=== PATIENT | female | born 1975 | race Caucasian/White ===

== ENCOUNTER 2017-12-03 10:10 | Outpatient (REF) | payer MEDICAID, SELFPAY ==
[2017-12-07 00:12] LABS: 6-monoacetylmorphine Not Detected ng/mL (Cutoff: 25); Amphetamines Negative ng/mL (Cutoff: 500); Barbiturates Negative ng/mL (Cutoff: 200); Benzodiazepines Negative ng/mL (Cutoff: 100); Buprenorphine Not Detected ng/mL (Cutoff: 5); Cocaine Negative ng/mL (Cutoff: 150); Codeine Not Detected ng/mL (Cutoff: 25); Comment Normal; Creatinine, U 53.8 mg/dL; Dihydrocodeine Not Detected ng/mL (Cutoff: 25); EDDP Present ng/mL (Cutoff: 25); Fentanyl Not Detected ng/mL (Cutoff: 2); Hydrocodone Not Detected ng/mL (Cutoff: 25); Hydromorphone Not Detected ng/mL (Cutoff: 25); Hydromorphone-3-beta-glucuroni Not Detected ng/mL (Cutoff: 100); Meperidine Not Detected ng/mL (Cutoff: 25); Methadone Present ng/mL (Cutoff: 25); Morphine Not Detected ng/mL (Cutoff: 25); N-desmethyltapentadol Not Detected ng/mL (Cutoff: 50); Naloxone Not Detected ng/mL (Cutoff: 25); Norbuprenorphine Not Detected ng/mL (Cutoff: 5); Norfentanyl Not Detected ng/mL (Cutoff: 2); Norhydrocodone Not Detected ng/mL (Cutoff: 25); Normeperidine Not Detected ng/mL (Cutoff: 25); Noroxycodone Present ng/mL (Cutoff: 25); Noroxymorphone Present ng/mL (Cutoff: 25); O-desmethyltramadol Not Detected ng/mL (Cutoff: 25); Phencyclidine Negative ng/mL (Cutoff: 25); Propoxyphene Not Detected ng/mL (Cutoff: 25); Specific Gravity 1.008; Tapentadol Not Detected ng/mL (Cutoff: 25); Tetrahydrocannabinol Negative ng/mL (Cutoff: 50); Tramadol Not Detected ng/mL (Cutoff: 25); pH 7.1
== END 2017-12-03 10:30 ==
LOC: LBN 10:10
PROVIDERS: PCP Family Medicine; Visit Provider Nurse Practitioner Family
DX: M54.5 Low back pain (principal); Z79.891 Long term (current) use of opiate analgesic
CPT/HCPCS: 80307; 80364

== ENCOUNTER 2018-02-25 10:12 | Outpatient (REF) | payer MEDICAID, SELFPAY ==
[2018-03-01 15:16] LABS: 6-monoacetylmorphine Not Detected ng/mL (Cutoff: 25); Amphetamines Negative ng/mL (Cutoff: 500); Barbiturates Negative ng/mL (Cutoff: 200); Benzodiazepines Negative ng/mL (Cutoff: 100); Buprenorphine Not Detected ng/mL (Cutoff: 5); Cocaine Negative ng/mL (Cutoff: 150); Codeine Not Detected ng/mL (Cutoff: 25); Comment Normal; Creatinine, U 61.8 mg/dL; Dihydrocodeine Not Detected ng/mL (Cutoff: 25); EDDP Present ng/mL (Cutoff: 25); Fentanyl Not Detected ng/mL (Cutoff: 2); Hydrocodone Not Detected ng/mL (Cutoff: 25); Hydromorphone Not Detected ng/mL (Cutoff: 25); Hydromorphone-3-beta-glucuroni Not Detected ng/mL (Cutoff: 100); Meperidine Not Detected ng/mL (Cutoff: 25); Methadone Present ng/mL (Cutoff: 25); Morphine Not Detected ng/mL (Cutoff: 25); N-desmethyltapentadol Not Detected ng/mL (Cutoff: 50); Naloxone Not Detected ng/mL (Cutoff: 25); Norbuprenorphine Not Detected ng/mL (Cutoff: 5); Norfentanyl Not Detected ng/mL (Cutoff: 2); Norhydrocodone Not Detected ng/mL (Cutoff: 25); Normeperidine Not Detected ng/mL (Cutoff: 25); Noroxycodone Present ng/mL (Cutoff: 25); Noroxymorphone Present ng/mL (Cutoff: 25); O-desmethyltramadol Not Detected ng/mL (Cutoff: 25); Phencyclidine Negative ng/mL (Cutoff: 25); Propoxyphene Not Detected ng/mL (Cutoff: 25); Specific Gravity 1.012; Tapentadol Not Detected ng/mL (Cutoff: 25); Tetrahydrocannabinol Negative ng/mL (Cutoff: 50); Tramadol Not Detected ng/mL (Cutoff: 25); pH 7.1
== END 2018-02-25 10:32 ==
LOC: LBN 10:12
PROVIDERS: PCP Family Medicine; Visit Provider Nurse Practitioner Family
DX: Z79.891 Long term (current) use of opiate analgesic (principal)
CPT/HCPCS: 80307; 80364

== ENCOUNTER 2018-05-16 07:00 | Outpatient (REF) | payer MEDICAID, SELFPAY ==
[2018-05-17 10:09] LABS: Vancomycin, Trough 11.7 ug/mL (10.0-20.0)
== END 2018-05-16 07:20 ==
LOC: LBN 07:00
PROVIDERS: PCP Family Medicine; Visit Provider Neurological Surgery
DX: Z79.2 Long term (current) use of antibiotics (principal); Z51.81 Encounter for therapeutic drug level monitoring
CPT/HCPCS: 80202

== ENCOUNTER 2018-06-17 10:52 | Outpatient (REF) | payer MEDICAID, SELFPAY ==
[2018-06-21 12:52] LABS: 6-monoacetylmorphine Not Detected ng/mL (Cutoff: 25); Amphetamines Negative ng/mL (Cutoff: 500); Barbiturates Negative ng/mL (Cutoff: 200); Benzodiazepines Negative ng/mL (Cutoff: 100); Buprenorphine Not Detected ng/mL (Cutoff: 5); Cocaine Negative ng/mL (Cutoff: 150); Codeine Not Detected ng/mL (Cutoff: 25); Comment Normal; Dihydrocodeine Not Detected ng/mL (Cutoff: 25); EDDP Present ng/mL (Cutoff: 25); Fentanyl Not Detected ng/mL (Cutoff: 2); Hydrocodone Not Detected ng/mL (Cutoff: 25); Hydromorphone Not Detected ng/mL (Cutoff: 25); Hydromorphone-3-beta-glucuroni Not Detected ng/mL (Cutoff: 100); Meperidine Not Detected ng/mL (Cutoff: 25); Methadone Present ng/mL (Cutoff: 25); Morphine Not Detected ng/mL (Cutoff: 25); N-desmethyltapentadol Not Detected ng/mL (Cutoff: 50); Naloxone Not Detected ng/mL (Cutoff: 25); Norbuprenorphine Not Detected ng/mL (Cutoff: 5); Norfentanyl Not Detected ng/mL (Cutoff: 2); Norhydrocodone Not Detected ng/mL (Cutoff: 25); Normeperidine Not Detected ng/mL (Cutoff: 25); Noroxycodone Present ng/mL (Cutoff: 25); Noroxymorphone Present ng/mL (Cutoff: 25); O-desmethyltramadol Not Detected ng/mL (Cutoff: 25); Phencyclidine Negative ng/mL (Cutoff: 25); Propoxyphene Not Detected ng/mL (Cutoff: 25); Specific Gravity 1.009; Tapentadol Not Detected ng/mL (Cutoff: 25); Tetrahydrocannabinol Negative ng/mL (Cutoff: 50); Tramadol Not Detected ng/mL (Cutoff: 25); pH 6.9
== END 2018-06-17 11:12 ==
LOC: LBN 10:52
PROVIDERS: PCP Family Medicine; Visit Provider Nurse Practitioner Family
DX: Z79.891 Long term (current) use of opiate analgesic (principal)
CPT/HCPCS: 80307; 80364

== ENCOUNTER 2018-09-08 09:58 | Outpatient (REF) | payer MEDICAID, SELFPAY ==
[2018-09-11 22:33] LABS: 6-monoacetylmorphine Not Detected ng/mL (Cutoff: 25); Amphetamines Negative ng/mL (Cutoff: 500); Barbiturates Negative ng/mL (Cutoff: 200); Benzodiazepines Negative ng/mL (Cutoff: 100); Buprenorphine Not Detected ng/mL (Cutoff: 5); Cocaine Negative ng/mL (Cutoff: 150); Codeine Not Detected ng/mL (Cutoff: 25); Comment Normal; Creatinine, U 131.2 mg/dL; Dihydrocodeine Not Detected ng/mL (Cutoff: 25); EDDP Present ng/mL (Cutoff: 25); Fentanyl Not Detected ng/mL (Cutoff: 2); Hydrocodone Not Detected ng/mL (Cutoff: 25); Hydromorphone Not Detected ng/mL (Cutoff: 25); Hydromorphone-3-beta-glucuroni Not Detected ng/mL (Cutoff: 100); Meperidine Not Detected ng/mL (Cutoff: 25); Methadone Present ng/mL (Cutoff: 25); Morphine Not Detected ng/mL (Cutoff: 25); N-desmethyltapentadol Not Detected ng/mL (Cutoff: 50); Naloxone Not Detected ng/mL (Cutoff: 25); Norbuprenorphine Not Detected ng/mL (Cutoff: 5); Norhydrocodone Not Detected ng/mL (Cutoff: 25); Normeperidine Not Detected ng/mL (Cutoff: 25); Noroxycodone Not Detected ng/mL (Cutoff: 25); Noroxymorphone Not Detected ng/mL (Cutoff: 25); O-desmethyltramadol Not Detected ng/mL (Cutoff: 25); Phencyclidine Negative ng/mL (Cutoff: 25); Propoxyphene Not Detected ng/mL (Cutoff: 25); Specific Gravity 1.015; Tapentadol Not Detected ng/mL (Cutoff: 25); Tetrahydrocannabinol Negative ng/mL (Cutoff: 50); Tramadol Not Detected ng/mL (Cutoff: 25)
== END 2018-09-08 10:18 ==
LOC: LBN 09:58
PROVIDERS: PCP Family Medicine; Visit Provider Nurse Practitioner Family
DX: Z79.891 Long term (current) use of opiate analgesic (principal)
CPT/HCPCS: 80307; 80364

== ENCOUNTER 2018-11-22 13:06 | Outpatient (REF) | payer MEDICAID, SELFPAY ==
[2018-11-22 13:56] LABS: Abs Immature Grans 0.03 k/cumm (0.0-0.09); Absolute Basophil Count 0.02 k/cumm (0.0-0.2); Absolute Eosinophil Count 0.07 k/cumm (0.0-0.7); Absolute Lymphocyte Count 1.45 k/cumm (1.2-3.4); Absolute Monocyte Count 0.46 k/cumm (0.11-0.7); Absolute Neutrophil Count 6.86 k/cumm (1.2-6.7); Basophils % 0.2; Eosinophils % 0.8; HCT 34.4 % (36.0-46.0); HGB 11.6 g/dL (12.0-15.5); Immature Grans % 0.3; Lymphocytes % 16.3; Mean Corp. HGB Concentration 33.7 g/dL (32.0-36.0); Mean Platelet Volume 9.7 fL (8.0-11.0); Monocytes % 5.2; Neutrophils % 77.2; Platelet Count 350 x1000/uL (130-400); RBC 3.74 m/cumm (4.00-5.20); RBC Distribution Width 14.2 % (11.7-14.6); White Blood Cell Count 8.89 k/cumm (4.4-10.8)
[2018-11-22 15:10] LABS: ALT 15 U/L (14-59); AST 13 U/L (15-37); BUN 4 mg/dL (7-18); CREATININE 0.65 mg/dL (0.55-1.02)
[2018-11-26 12:26] LABS: 6-monoacetylmorphine Not Detected ng/mL (Cutoff: 25); Amphetamines Negative ng/mL (Cutoff: 500); Barbiturates Negative ng/mL (Cutoff: 200); Benzodiazepines Negative ng/mL (Cutoff: 100); Buprenorphine Not Detected ng/mL (Cutoff: 5); Cocaine Negative ng/mL (Cutoff: 150); Codeine Not Detected ng/mL (Cutoff: 25); Comment Normal; Creatinine, U 142.2 mg/dL; Dihydrocodeine Not Detected ng/mL (Cutoff: 25); EDDP Present ng/mL (Cutoff: 25); Fentanyl Not Detected ng/mL (Cutoff: 2); Hydrocodone Not Detected ng/mL (Cutoff: 25); Hydromorphone Not Detected ng/mL (Cutoff: 25); Hydromorphone-3-beta-glucuroni Not Detected ng/mL (Cutoff: 100); Meperidine Not Detected ng/mL (Cutoff: 25); Methadone Present ng/mL (Cutoff: 25); Morphine Present ng/mL (Cutoff: 25); N-desmethyltapentadol Not Detected ng/mL (Cutoff: 50); Naloxone Not Detected ng/mL (Cutoff: 25); Norfentanyl Not Detected ng/mL (Cutoff: 2); Norhydrocodone Not Detected ng/mL (Cutoff: 25); Normeperidine Not Detected ng/mL (Cutoff: 25); Noroxycodone Not Detected ng/mL (Cutoff: 25); Noroxymorphone Not Detected ng/mL (Cutoff: 25); O-desmethyltramadol Not Detected ng/mL (Cutoff: 25); Phencyclidine Negative ng/mL (Cutoff: 25); Propoxyphene Not Detected ng/mL (Cutoff: 25); Specific Gravity 1.015; Tapentadol Not Detected ng/mL (Cutoff: 25); Tetrahydrocannabinol Presumptive Positive ng/mL (Cutoff: 50); Tramadol Not Detected ng/mL (Cutoff: 25); pH 6.3
[2018-11-26 16:38] LABS: Carboxy-THC Interpretation Negative.; Delta-9 CarboxyThc by LC-MS/MS Negative ng/mL (Cutoff:<3)
== END 2018-11-22 13:26 ==
LOC: LBN 13:06
PROVIDERS: Nurse Practitioner Family; PCP Family Medicine; Visit Provider Neurological Surgery
DX: G03.9 Meningitis, unspecified (principal); Z79.2 Long term (current) use of antibiotics
CPT/HCPCS: 80307; 80349; 80364; 84520; 82565; 84450; 84460; 85025

== ENCOUNTER 2018-11-29 14:09 | Outpatient (REF) | payer MEDICAID, SELFPAY ==
[2018-11-29 14:34] LABS: Abs Immature Grans 0.01 k/cumm (0.0-0.09); Absolute Basophil Count 0.02 k/cumm (0.0-0.2); Absolute Eosinophil Count 0.14 k/cumm (0.0-0.7); Absolute Lymphocyte Count 1.65 k/cumm (1.2-3.4); Absolute Monocyte Count 0.56 k/cumm (0.11-0.7); Absolute Neutrophil Count 5.26 k/cumm (1.2-6.7); Basophils % 0.3; Eosinophils % 1.8; HCT 33.5 % (36.0-46.0); HGB 11.4 g/dL (12.0-15.5); Immature Grans % 0.1; Lymphocytes % 21.6; Mean Corpuscular Volume 94.1 fL (80-95); Mean Platelet Volume 9.4 fL (8.0-11.0); Monocytes % 7.3; Neutrophils % 68.9; Platelet Count 325 x1000/uL (130-400); RBC 3.56 m/cumm (4.00-5.20); RBC Distribution Width 16.1 % (11.7-14.6); White Blood Cell Count 7.64 k/cumm (4.4-10.8)
[2018-11-29 14:40] LABS: ALT 11 U/L (14-59); AST 10 U/L (15-37); BUN 6 mg/dL (7-18); CREATININE 0.59 mg/dL (0.55-1.02)
== END 2018-11-29 14:29 ==
LOC: LBN 14:09
PROVIDERS: PCP Family Medicine; Visit Provider Neurological Surgery
DX: G00.8 Other bacterial meningitis (principal); Z79.2 Long term (current) use of antibiotics
CPT/HCPCS: 84520; 82565; 84450; 84460; 85025

== ENCOUNTER 2018-12-08 12:41 | Outpatient (REF) | payer MEDICAID, SELFPAY ==
[2018-12-08 14:18] LABS: Abs Immature Grans 0.02 k/cumm (0.0-0.09); Absolute Basophil Count 0.04 k/cumm (0.0-0.2); Absolute Eosinophil Count 0.11 k/cumm (0.0-0.7); Absolute Lymphocyte Count 2.07 k/cumm (1.2-3.4); Absolute Monocyte Count 0.67 k/cumm (0.11-0.7); Absolute Neutrophil Count 4.85 k/cumm (1.2-6.7); Basophils % 0.5; Eosinophils % 1.4; HCT 35.7 % (36.0-46.0); HGB 12.1 g/dL (12.0-15.5); Immature Grans % 0.3; Lymphocytes % 26.7; Mean Corp. HGB Concentration 33.9 g/dL (32.0-36.0); Mean Corpuscular Hemoglobin 32.1 pg (27.0-33.0); Mean Corpuscular Volume 94.7 fL (80-95); Mean Platelet Volume 9.8 fL (8.0-11.0); Monocytes % 8.6; Neutrophils % 62.5; Platelet Count 316 x1000/uL (130-400); RBC 3.77 m/cumm (4.00-5.20); RBC Distribution Width 16.2 % (11.7-14.6); White Blood Cell Count 7.76 k/cumm (4.4-10.8)
[2018-12-08 23:17] LABS: ALT 12 U/L (14-59); AST 14 U/L (15-37); Alkaline Phosphatase 99 U/L (46-116); BUN 7 mg/dL (7-18); Bilirubin, Direct 0.11 mg/dL (0.00-0.20); Bilirubin, Total 0.9 mg/dL (0.2-1.0); CREATININE 0.64 mg/dL (0.55-1.02)
== END 2018-12-08 13:01 ==
LOC: LBN 12:41
PROVIDERS: PCP Family Medicine; Visit Provider Neurological Surgery
DX: G00.8 Other bacterial meningitis (principal)
CPT/HCPCS: 80076; 84520; 82565; 85025

== ENCOUNTER 2018-12-14 16:26 | Outpatient (REF) | payer MEDICAID, SELFPAY ==
[2018-12-14 17:29] LABS: Abs Immature Grans 0.01 k/cumm (0.0-0.09); Absolute Basophil Count 0.03 k/cumm (0.0-0.2); Absolute Eosinophil Count 0.07 k/cumm (0.0-0.7); Absolute Lymphocyte Count 1.53 k/cumm (1.2-3.4); Absolute Monocyte Count 0.52 k/cumm (0.11-0.7); Absolute Neutrophil Count 4.95 k/cumm (1.2-6.7); Basophils % 0.4; HCT 37.8 % (36.0-46.0); HGB 12.5 g/dL (12.0-15.5); Immature Grans % 0.1; Lymphocytes % 21.5; Mean Corp. HGB Concentration 33.1 g/dL (32.0-36.0); Mean Corpuscular Hemoglobin 31.9 pg (27.0-33.0); Mean Corpuscular Volume 96.4 fL (80-95); Monocytes % 7.3; Neutrophils % 69.7; Platelet Count 299 x1000/uL (130-400); RBC 3.92 m/cumm (4.00-5.20); RBC Distribution Width 16.2 % (11.7-14.6); White Blood Cell Count 7.11 k/cumm (4.4-10.8)
== END 2018-12-14 16:46 ==
LOC: LBN 16:26
PROVIDERS: PCP Family Medicine; Visit Provider Neurological Surgery
DX: G00.8 Other bacterial meningitis (principal); T85.730D Infection and inflammatory reaction due to ventricular intracranial (communicating) shunt, subsequent encounter
CPT/HCPCS: 85025

== ENCOUNTER 2018-12-20 19:19 | Outpatient (REF) | payer MEDICAID, SELFPAY ==
[2018-12-20 15:40] LABS: Abs Immature Grans 0.02 k/cumm (0.0-0.09); Absolute Basophil Count 0.04 k/cumm (0.0-0.2); Absolute Eosinophil Count 0.07 k/cumm (0.0-0.7); Absolute Lymphocyte Count 2.65 k/cumm (1.2-3.4); Absolute Monocyte Count 0.54 k/cumm (0.11-0.7); Absolute Neutrophil Count 3.83 k/cumm (1.2-6.7); Basophils % 0.6; HCT 39.5 % (36.0-46.0); HGB 13.5 g/dL (12.0-15.5); Immature Grans % 0.3; Lymphocytes % 37.1; Mean Corp. HGB Concentration 34.2 g/dL (32.0-36.0); Mean Corpuscular Hemoglobin 32.3 pg (27.0-33.0); Mean Corpuscular Volume 94.5 fL (80-95); Mean Platelet Volume 9.7 fL (8.0-11.0); Monocytes % 7.6; Neutrophils % 53.4; Platelet Count 351 x1000/uL (130-400); RBC 4.18 m/cumm (4.00-5.20); RBC Distribution Width 15.4 % (11.7-14.6); White Blood Cell Count 7.15 k/cumm (4.4-10.8)
[2018-12-20 16:02] LABS: ALT 13 U/L (14-59); AST 17 U/L (15-37); BUN 9 mg/dL (7-18); CREATININE 0.73 mg/dL (0.55-1.02)
== END 2018-12-20 19:39 ==
LOC: LBN 19:19
PROVIDERS: PCP Family Medicine; Visit Provider Neurological Surgery
DX: G00.8 Other bacterial meningitis (principal); Z79.2 Long term (current) use of antibiotics
CPT/HCPCS: 84520; 82565; 84450; 84460; 85025

== ENCOUNTER 2019-02-07 15:27 | Outpatient (REF) | payer MEDICAID, SELFPAY ==
[2019-02-07 16:18] LABS: Abs Immature Grans 0.02 k/cumm (0.0-0.09); Absolute Basophil Count 0.03 k/cumm (0.0-0.2); Absolute Eosinophil Count 0.13 k/cumm (0.0-0.7); Absolute Lymphocyte Count 2.12 k/cumm (1.2-3.4); Absolute Monocyte Count 0.55 k/cumm (0.11-0.7); Basophils % 0.3; Eosinophils % 1.2; HCT 35.2 % (36.0-46.0); HGB 11.7 g/dL (12.0-15.5); Immature Grans % 0.2; Lymphocytes % 19.4; Mean Corp. HGB Concentration 33.2 g/dL (32.0-36.0); Mean Corpuscular Hemoglobin 31.8 pg (27.0-33.0); Mean Corpuscular Volume 95.7 fL (80-95); Neutrophils % 73.9; Platelet Count 364 x1000/uL (130-400); RBC 3.68 m/cumm (4.00-5.20); RBC Distribution Width 12.7 % (11.7-14.6); White Blood Cell Count 10.95 k/cumm (4.4-10.8)
[2019-02-07 16:19] LABS: Absolute Neutrophil Count 8.09 k/cumm (1.2-6.7)
[2019-02-07 16:33] LABS: ALT 16 U/L (14-59); AST 13 U/L (15-37); Albumin 3.3 g/dL (3.4-5.0); Alkaline Phosphatase 82 U/L (46-116); BUN 9 mg/dL (7-18); Bilirubin, Direct 0.09 mg/dL (0.00-0.20); Bilirubin, Total 0.5 mg/dL (0.2-1.0); CREATININE 0.72 mg/dL (0.55-1.02); Total Protein 6.9 g/dL (6.4-8.2)
== END 2019-02-07 15:47 ==
LOC: LBN 15:27
PROVIDERS: PCP Family Medicine; Visit Provider Family Medicine
DX: T85.730D Infection and inflammatory reaction due to ventricular intracranial (communicating) shunt, subsequent encounter (principal); Q07.03 Arnold-Chiari syndrome with spina bifida and hydrocephalus; G03.9 Meningitis, unspecified
CPT/HCPCS: 80076; 84520; 82565; 85025

== ENCOUNTER 2019-02-14 13:16 | Outpatient (REF) | payer MEDICAID, SELFPAY ==
[2019-02-14 14:48] LABS: ALT 11 U/L (14-59); AST 9 U/L (15-37); BUN 13 mg/dL (7-18); CREATININE 0.68 mg/dL (0.55-1.02)
[2019-02-14 14:57] LABS: Abs Immature Grans 0.01 k/cumm (0.0-0.09); Absolute Basophil Count 0.02 k/cumm (0.0-0.2); Absolute Eosinophil Count 0.23 k/cumm (0.0-0.7); Absolute Lymphocyte Count 2.05 k/cumm (1.2-3.4); Absolute Monocyte Count 0.76 k/cumm (0.11-0.7); Absolute Neutrophil Count 5.83 k/cumm (1.2-6.7); Basophils % 0.2; Eosinophils % 2.6; HCT 37.2 % (36.0-46.0); HGB 12.4 g/dL (12.0-15.5); Immature Grans % 0.1; Mean Corp. HGB Concentration 33.3 g/dL (32.0-36.0); Mean Corpuscular Hemoglobin 31.8 pg (27.0-33.0); Mean Corpuscular Volume 95.4 fL (80-95); Mean Platelet Volume 9.6 fL (8.0-11.0); Monocytes % 8.5; Neutrophils % 65.6; Platelet Count 341 x1000/uL (130-400); RBC Distribution Width 13.1 % (11.7-14.6)
== END 2019-02-14 13:36 ==
LOC: LBN 13:16
PROVIDERS: PCP Family Medicine; Visit Provider Internal Medicine Infectious Disease
DX: G03.9 Meningitis, unspecified (principal); Z98.2 Presence of cerebrospinal fluid drainage device
CPT/HCPCS: 84520; 82565; 84450; 84460; 85025

== ENCOUNTER 2019-02-21 19:23 | Outpatient (REF) | payer MEDICAID, SELFPAY ==
[2019-02-21 19:31] LABS: ALT 15 U/L (14-59); AST 12 U/L (15-37); BUN 17 mg/dL (7-18); CREATININE 0.93 mg/dL (0.55-1.02)
[2019-02-21 19:35] LABS: Abs Immature Grans 0.02 k/cumm (0.0-0.09); Absolute Basophil Count 0.05 k/cumm (0.0-0.2); Absolute Eosinophil Count 0.19 k/cumm (0.0-0.7); Absolute Lymphocyte Count 2.26 k/cumm (1.2-3.4); Absolute Monocyte Count 0.66 k/cumm (0.11-0.7); Absolute Neutrophil Count 4.94 k/cumm (1.2-6.7); Basophils % 0.6; Eosinophils % 2.3; HCT 38.2 % (36.0-46.0); HGB 12.9 g/dL (12.0-15.5); Immature Grans % 0.2; Lymphocytes % 27.8; Mean Corp. HGB Concentration 33.8 g/dL (32.0-36.0); Mean Corpuscular Hemoglobin 32.1 pg (27.0-33.0); Mean Platelet Volume 9.8 fL (8.0-11.0); Monocytes % 8.1; Platelet Count 296 x1000/uL (130-400); RBC 4.02 m/cumm (4.00-5.20); RBC Distribution Width 13.3 % (11.7-14.6); White Blood Cell Count 8.12 k/cumm (4.4-10.8)
== END 2019-02-21 19:43 ==
LOC: LBN 19:23
PROVIDERS: PCP Family Medicine; Visit Provider Internal Medicine Infectious Disease
DX: G03.9 Meningitis, unspecified (principal); A41.01 Sepsis due to Methicillin susceptible Staphylococcus aureus
CPT/HCPCS: 84520; 82565; 84450; 84460; 85025

== ENCOUNTER 2019-03-03 16:32 | Outpatient (REF) | payer MEDICAID, SELFPAY ==
[2019-03-03 17:03] LABS: ALT 14 U/L (14-59); AST 12 U/L (15-37); BUN 13 mg/dL (7-18); CREATININE 0.66 mg/dL (0.55-1.02)
[2019-03-03 17:22] LABS: Abs Immature Grans 0.02 k/cumm (0.0-0.09); Absolute Basophil Count 0.04 k/cumm (0.0-0.2); Absolute Lymphocyte Count 2.37 k/cumm (1.2-3.4); Absolute Monocyte Count 0.71 k/cumm (0.11-0.7); Absolute Neutrophil Count 6.03 k/cumm (1.2-6.7); Basophils % 0.4; Eosinophils % 1.1; HCT 37.8 % (36.0-46.0); Immature Grans % 0.2; Lymphocytes % 25.6; Mean Corp. HGB Concentration 34.4 g/dL (32.0-36.0); Mean Corpuscular Hemoglobin 32.6 pg (27.0-33.0); Mean Corpuscular Volume 94.7 fL (80-95); Mean Platelet Volume 9.6 fL (8.0-11.0); Monocytes % 7.7; Platelet Count 297 x1000/uL (130-400); RBC 3.99 m/cumm (4.00-5.20); RBC Distribution Width 13.5 % (11.7-14.6); White Blood Cell Count 9.27 k/cumm (4.4-10.8)
== END 2019-03-03 16:52 ==
LOC: LBN 16:32
PROVIDERS: PCP Family Medicine; Visit Provider Internal Medicine Infectious Disease
DX: A41.01 Sepsis due to Methicillin susceptible Staphylococcus aureus (principal)
CPT/HCPCS: 84520; 82565; 84450; 84460; 85025

== ENCOUNTER 2019-03-07 15:17 | Outpatient (REF) | payer MEDICAID, SELFPAY ==
[2019-03-07 17:32] LABS: Abs Immature Grans 0.02 k/cumm (0.0-0.09); Absolute Basophil Count 0.03 k/cumm (0.0-0.2); Absolute Eosinophil Count 0.13 k/cumm (0.0-0.7); Absolute Lymphocyte Count 2.33 k/cumm (1.2-3.4); Absolute Monocyte Count 0.62 k/cumm (0.11-0.7); Absolute Neutrophil Count 4.38 k/cumm (1.2-6.7); Basophils % 0.4; Eosinophils % 1.7; HCT 38.3 % (36.0-46.0); HGB 13.1 g/dL (12.0-15.5); Immature Grans % 0.3; Mean Corp. HGB Concentration 34.2 g/dL (32.0-36.0); Mean Corpuscular Hemoglobin 32.3 pg (27.0-33.0); Mean Corpuscular Volume 94.6 fL (80-95); Monocytes % 8.3; Neutrophils % 58.3; Platelet Count 331 x1000/uL (130-400); RBC 4.05 m/cumm (4.00-5.20); RBC Distribution Width 13.7 % (11.7-14.6); White Blood Cell Count 7.51 k/cumm (4.4-10.8)
[2019-03-07 17:43] LABS: ALT 12 U/L (14-59); AST 12 U/L (15-37); BUN 10 mg/dL (7-18); CREATININE 0.54 mg/dL (0.55-1.02)
== END 2019-03-07 15:37 ==
LOC: LBN 15:17
PROVIDERS: PCP Family Medicine; Visit Provider Internal Medicine Infectious Disease
DX: G03.9 Meningitis, unspecified (principal); A41.01 Sepsis due to Methicillin susceptible Staphylococcus aureus
CPT/HCPCS: 84520; 82565; 84450; 84460; 85025

== ENCOUNTER → 2023-07-10 04:16 | Outpatient (CLI) | payer MEDICAID, SELFPAY ==
--- NOTE | 2023-07-10 07:30 | DI.CT_ITS ---
Exam(s) CT CHEST PE CTA EXAM: CT CHEST PE CTA CLINICAL HISTORY: hypoxia,h/o pe, dyspnea,r06.00,z86.711. TECHNIQUE: Imaging Protocol: CT angiography of the chest was performed using pulmonary embolus kp col. Multi planar reconstructions were performed. CONTRAST MATERIAL: Intravenous: Omnipaque 350 Contrast volume: 100 cc COMPARISON: No exams were available for comparison FINDINGS: CHEST: PULMONARY ARTERIES: There are no intraluminal filling defects to suggest acute pulmonary emboli. LUNGS: There is a small area of ground-glass infiltrate in the anterior segment of the right upper lo be.. There is a pleural based nodule in the lateral basal segment of the left lower lobe which measu res 5 mm. There is also a 3 millimeter pleural base nodule in the lateral basal segment of the left lower lobe. No other nodules identified. No pleural effusions. No significant focal findings in th e trachea and mainstem bronchi. There is no bronchiectasis. MEDIASTINUM: No significant hilar nor mediastinal adenopathy. Visualized thyroid unremarkable. No a xillary adenopathy. No supraclavicular adenopathy seen. CARDIAC: Heart size is upper normal. There is no pericardial effusion.Caliber of the thoracic aorta is within normal limits. No evidence of aortic dissection. There is no significant shift of the inte rventricular septum. PARTIALLY VISUALIZED UPPERMOST ABDOMEN: There is ventriculoperitoneal shunt noted. No adrenal masses . No splenomegaly. OSSEOUS: Fusion plate in the lower cervical spine noted at C6-7 level.No fractures. No significant o sseous lesions. OTHER: Right-sided Port-A-Cath. Distal tip is in the upper right atrium.. IMPRESSION: 1. No evidence of acute pulmonary emboli. No evidence of pulmonary infarction.No pleural effusions. 2. Small area of ground-glass infiltrate in the right upper lobe anterior segment. 3. Three small pleural base nodules noted in the left lower lobe, the largest measuring 5 mm. Other findings as above. RADIATION DOSE DELIVERED: 1,073.41mGy.cm Total DLP DATA REPOSITORY: All CT scans at this facility are submitted to the National Radiology Data Registry (NRDR) Dose Index Registry (DIR) with the [employer] (A[employer]). RADIATION OPTIMIZATION: All CT scans at this facility use at least one of these dose optimization te chniques: automated exposure control; mA and/or kV adjustment per patient size (includes targeted exa ms where dose is matched to clinical indication); or iterative reconstruction.
[2023-07-10] MEDS: Omnipaque 350 MG/ML 100 ML BTL 85 ML IJ (11:52)
[2023-07-10] MEDS: Normal Saline - Diluent 50 ML VIAL IJ (12:01)
== END ==
PROVIDERS: PCP Family Medicine; Visit Provider Physician Assistant Surgical
DX: Z86.711 Personal history of pulmonary embolism (principal); R06.00 Dyspnea, unspecified
CPT/HCPCS: 71275; J3490

== ENCOUNTER 2023-07-10 06:07 | Outpatient (CLI) | payer MEDICAID, SELFPAY ==
[2023-07-10 09:04] LABS: BE 3 mmol/L (-2-3); HCO3 27 mmol/L (22-26); pCO2 40 mmHg (35-45); pH 7.44 (7.35-7.45); pO2 90 mmHg (80-105); sO2 98 % (95-98); tCO2 24 mmol/L (23-27)
[2023-07-10 09:05] LABS: FIO2L 3 L; Site Left Radial
--- NOTE | 2023-07-14 08:58 | PFT_ITS ---
Date of service: 07/10/23 Time of Service: 08:07 Pulmonary Function Test Result Indications: Dyspnea Interpretation Spirometry: There is moderate airflow limitation. Significant bronchodilator response. Lung Volumes: There is air trapping Diffusion Capacity: Decreased diffusion Airway Pressure: Increased airways resistance Impression Moderate airflow obstruction with a bronchodilator response and a decreased diff usion. This could represent COPD with emphysema or possibly asthma-COPD overlap syndrome. Clinical Correlation therefore is recommended.
== END 2023-07-10 06:08 | disposition home or self-care (01) ==
LOC: RT 06:07
PROVIDERS: PCP Family Medicine; Visit Provider Physician Assistant Surgical
DX: R06.00 Dyspnea, unspecified (principal)
CPT/HCPCS: 82805; 94060; 94726; 94729; 36600

== ENCOUNTER 2023-08-06 14:30 | Outpatient (RCR) | payer MEDICAID, SELFPAY ==
[2023-07-10] MEDS: Normal Saline Flush 10 ML SYR IVP (11:02)
[2023-07-10] MEDS: Heparin 500 UNITS/5 ML SYRINGE IV (11:02)
[2023-08-06] MEDS: Heparin 500 UNITS/5 ML SYRINGE IV (14:44)
[2023-08-06] MEDS: Normal Saline Flush 10 ML SYR IVP (14:44)
[2023-08-06 15:41] LABS: CREATININE 0.6 mg/dL (0.55-1.02); Estimated GFR 109.96 (mL/min/1.73m2)
[2023-08-07 15:12] LABS: Albumin 57.8 % (55.8-66.1); Albumin g/dL 4.3 g/dL (3.6-5.2); Comment (See Note); Total Protein 7.4 g/dL (6.3-8.2)
[2023-08-10 13:58] LABS: Immunotyping, Serum (See Note)
== END 2023-08-07 23:59 | disposition home or self-care (01) ==
LOC: INF 14:30
PROVIDERS: Student in an Organized Health Care Education/Training Program; PCP Family Medicine; Visit Provider Physician Assistant Surgical
DX: Z45.2 Encounter for adjustment and management of vascular access device (principal); Z86.711 Personal history of pulmonary embolism; R91.8 Other nonspecific abnormal finding of lung field
CPT/HCPCS: 36591; 96523; 82565; 84165; 86320; J1642

== ENCOUNTER 2024-07-20 02:10 | Outpatient (CLI) | payer MEDICAID, SELFPAY ==
--- NOTE | 2024-07-20 14:56 | DI.CTLCSR_ITS ---
Exam(s) CT CHEST LUNG CANCER SCREEN EXAM: CT CHEST LUNG CANCER SCREEN CLINICAL HISTORY: Screening for lung cancer,FORMER TOBACCO USE,Z87.891. TECHNIQUE: Imaging Protocol: Low Dose Technique CONTRAST MATERIAL: None COMPARISON: CT CT CHEST PE CTA from 07/10/2023 FINDINGS: CHEST: LUNGS: The previously described bilateral small lung nodules remain unchanged in size and number. Th e largest of these is in the lateral basal segment of the left lower lobe and is pleural based and me asures 5 mm, unchanged. There are no new ominous pulmonary nodules. There are no confluent infiltrat es. The previously present right upper lobe [id number] infiltrate appears to have resolved. There are no pleural effusions. MEDIASTINUM: There is no obvious hilar nor mediastinal adenopathy. CARDIAC: Heart size is normal. There is no pericardial effusion.Caliber of the thoracic aorta is wit hin normal limits. OTHER: Distal tip of Port-A-Cath is in the SVC and there is also what appears to be a right-sided luis e triculoperitoneal shunt which courses subcutaneously right of center. OSSEOUS: No significant osseous lesions.No fractures. Fusion plate in the lower cervical spine noted .. IMPRESSION: 1. Stable benign-appearing bilateral predominately peripheral lung nodules. No new lung nodules nor pleural effusions nor infiltrates and indeed a previously present ground-glass area of infiltrate in the right upper lobe has resolved. 2. No obvious intrathoracic adenopathy. 3. Lung RADS Cat 2 - Benign Appearance / Behavior: Nodules with a very low likelihood of becoming a c linically active cancer due to size or lack of growth Lung-RADS 1.0 CATEGORIES: Category 0 - Prior chest CT exam(s) being located for comparison. Category 1 - Annual screening in 12 months. No nodules or definitely benign nodules. Category 2 - Annual screening in 12 months. Benign appearance. Nodules with low likelihood of becomin g active cancer. Category 3 - 6-month follow-up. Probably benign. Short-term follow-up suggested. Nodules with low lik elihood of becoming active cancer. Category 4A - 3-month follow-up and CT/PET if >8 mm in size. Suspicious finding. Findings which requi re additional testing. Category 4B - Findings which require additional testing and tissue sampling. Category 4X - Category 3 or 4 nodules with additional features or imaging findings that increases the suspicion of malignancy. Modifier S- Potentially clinically significant findings (non lung cancer) RADIATION DOSE DELIVERED: 30.91mGy.cm Total DLP DATA REPOSITORY: All CT scans at this facility are submitted to the National Radiology Data Registry (NRDR) Dose Index Registry (DIR) with the [employer] (A[employer]). RADIATION OPTIMIZATION: All CT scans at this facility use at least one of these dose optimization te chniques: automated exposure control; mA and/or kV adjustment per patient size (includes targeted exa ms where dose is matched to clinical indication); or iterative reconstruction.
== END 2024-07-20 02:30 ==
LOC: DI 02:10
PROVIDERS: PCP Family Medicine; Visit Provider Physician Assistant Surgical
DX: Z87.891 Personal history of nicotine dependence (principal); Z12.2 Encounter for screening for malignant neoplasm of respiratory organs; R91.8 Other nonspecific abnormal finding of lung field
CPT/HCPCS: 71271